=== PATIENT | female | born 1975 | race American Indian/Alaskan Native ===

== ENCOUNTER 2016-12-06 16:38 | Outpatient (CLI) | payer BC ==
[2016-12-06 17:12] LABS: Basophils % (Auto) 0.5 % (0.0-1.8); Eosinophils % (Auto) 0.5 % (0.0-4.3); Hematocrit 34.6 % (30.3-42.9); Hemoglobin 10.9 gm/dl (10.1-14.3); Mean Corpuscular HGB Conc 31 % (30-34); Mean Corpuscular Volume 76 fl (79-97); Platelet Count 179 K/mm3 (140-440); Red Blood Count 4.56 M/mm3 (3.65-5.03); Red Cell Distribution Width 16.7 % (13.2-15.2); White Blood Count 5.8 K/mm3 (4.5-11.0)
[2016-12-06 17:15] LABS: Mean Corpuscular Hemoglobin 24 pg (28-32)
[2016-12-06 17:31] LABS: Alanine Aminotransferase 12 units/L (7-56); Albumin 4.2 g/dL (3.9-5); Albumin/Globulin Ratio 1.7 %; Alkaline Phosphatase 51 units/L (35-129); Anion Gap 14 mmol/L; BUN/Creatinine Ratio 13.75; Bilirubin,Total 0.6 mg/dL (0.1-1.2); Blood Urea Nitrogen 11 mg/dL (7-17); Calcium 8.9 mg/dL (8.4-10.2); Carbon Dioxide 23 mmol/L (22-30); Chloride 103.5 mmol/L (98-107); Cholesterol 164 mg/dL (50-199); Glucose 70 mg/dL (65-100); HDL Cholesterol 54 mg/dL (40-59); LDL Cholesterol,Direct 94 mg/dL (50-130); Potassium 3.9 mmol/L (3.6-5.0); Sodium 137 mmol/L (137-145); Total Protein 6.7 g/dL (6.3-8.2); Triglycerides 82 mg/dL (2-149)
== END 2016-12-06 16:39 | disposition home or self-care (01) ==
LOC: LAB 16:38
PROVIDERS: ATTEND Family Medicine
DX: Z00.00 Encounter for general adult medical examination without abnormal findings (principal); Z83.3 Family history of diabetes mellitus
CPT/HCPCS: 36415; 80053; 80061; 83036; 84443; 85025

== ENCOUNTER → 2018-01-24 | Outpatient (CLI) | payer BC | LOC: SLR 11:00 | PROVIDERS: ATTEND Specialist | DX: G47.30 Sleep apnea, unspecified (principal); I10 Essential (primary) hypertension; J45.909 Unspecified asthma, uncomplicated | CPT/HCPCS: 95810 ==

== ENCOUNTER 2018-01-25 06:04 | Emergency (ER) | payer BC, OTHER ==
[2018-01-25 06:33] VITALS: BP 143/94
--- NOTE | 2018-01-25 07:51 | Emergency Department Report ---
ED Lower Extremity HPI - General Chief Complaint: Extremity Problem,Nontraumatic Stated Complaint: PAIN IN ANKLE Time Seen by Provider: 01/25/18 07:44 Source: patient Mode of arrival: Ambulatory Limitations: No Limitations - History of Present Illness Initial Comments: 42-year-old female past medical history NELLI presents with complaint of right heel pain and ankle pain since yesterday. 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 Patient states she has had pain and swelling in area. Limping slightly due to right heel pain which radiates to the foot. Denies injury to any other body part. States she took Motrin for pain earlier today. Denies any lacerations. MD Complaint: ankle injury, foot injury Onset/Timin -: days(s) - Related Data Home Medications Medication Instructions Recorded Confirmed Last Taken Albuterol *Only Ed* [Proventil 2.5 mg IH Q4H PRN 10/14/13 07/15/17 04/16/15 0.5% NEBS] amLODIPine [Norvasc] 5 mg PO DAILY 04/16/15 07/15/17 04/16/15 Multivitamin Tab [Multiple Vitamin 1 tab PO QDAY 03/02/17 07/15/17 Unknown TAB (Theragran)] Previous Rx's Medication Instructions Recorded Last Taken Type ALPRAZolam [Xanax TAB] 0.5 mg PO TID PRN #30 tab 07/17/17 Unknown Rx Ibuprofen [Motrin 800 MG tab] 800 mg PO Q8H PRN #20 tablet 07/17/17 Unknown Rx Montelukast [Singulair] 10 mg PO PRN PRN 30 Days tablet 07/17/17 Unknown Rx Ondansetron [Zofran ORAL LIQ] 4 mg PO Q4H PRN 30 Days liquid 07/17/17 Unknown Rx Pantoprazole [Protonix TAB] 40 mg PO QDAY #30 tablet 07/17/17 Unknown Rx Prednisone [predniSONE 10 mg 10 mg PO .TAPER #1 tab.ds.pk 07/17/17 Unknown Rx (6-Day Pack, 21 Tabs)] tiZANidine [Zanaflex] 4 mg PO BID PRN #60 tablet 07/17/17 Unknown Rx Ibuprofen [Motrin] 800 mg PO Q8HR PRN #20 tablet 01/25/18 Unknown Rx Allergies Allergy/AdvReac Type Severity Reaction Status Date / Time [place] [employer] Allergy Shortness Verified 03/02/17 15:17 of Breath grapefruit [Grapefruit] Allergy Hives Verified 03/02/17 15:17 Iodinated Contrast- Oral and Allergy Shortness Verified 03/02/17 15:17 IV Dye of Breath [Iodinated Contrast Media - IV Dye] morphine Allergy CAUSES Verified 03/02/17 15:17 EXCITABILITY ED Review of Systems ROS: Stated complaint: PAIN IN ANKLE Other details as noted in HPI ED Past Medical Hx - Past Medical History Previous Medical History?: Yes Hx Hypertension: Yes Hx Heart Attack/AMI: No Hx Congestive Heart Failure: No Hx Diabetes: No Hx Deep Vein Thrombosis: No Hx Pulmonary Embolism: Yes Hx Sickle Cell Disease: No Hx Arthritis: Yes Hx Seizures: No Hx Asthma: Yes Hx COPD: No Hx Tuberculosis: No Hx Dementia: No Hx HIV: No - Surgical History Past Surgical History?: Yes Hx Coronary Stent: No Hx Pacemaker: No Hx Internal Defibrillator: No Hx Breast Surgery: Yes (breast reduction) Additional Surgical History: tubal ligation. tonsillectomy. pylonodal cyst - Social History Smoking Status: Never Smoker Substance Use Type: None - Medications Home Medications: Home Medications Medication Instructions Recorded Confirmed Last Taken Type Albuterol *Only Ed* [Proventil 2.5 mg IH Q4H PRN 10/14/13 07/15/17 04/16/15 History 0.5% NEBS] amLODIPine [Norvasc] 5 mg PO DAILY 04/16/15 07/15/17 04/16/15 History Multivitamin Tab [Multiple Vitamin 1 tab PO QDAY 03/02/17 07/15/17 Unknown History TAB (Theragran)] ALPRAZolam [Xanax TAB] 0.5 mg PO TID PRN #30 tab 07/17/17 Unknown Rx Ibuprofen [Motrin 800 MG tab] 800 mg PO Q8H PRN #20 tablet 07/17/17 Unknown Rx Montelukast [Singulair] 10 mg PO PRN PRN 30 Days tablet 07/17/17 Unknown Rx Ondansetron [Zofran ORAL LIQ] 4 mg PO Q4H PRN 30 Days liquid 07/17/17 Unknown Rx Pantoprazole [Protonix TAB] 40 mg PO QDAY #30 tablet 07/17/17 Unknown Rx Prednisone [predniSONE 10 mg 10 mg PO .TAPER #1 tab.ds.pk 07/17/17 Unknown Rx (6-Day Pack, 21 Tabs)] tiZANidine [Zanaflex] 4 mg PO BID PRN #60 tablet 07/17/17 Unknown Rx Ibuprofen [Motrin] 800 mg PO Q8HR PRN #20 tablet 01/25/18 Unknown Rx ED Physical Exam - General Limitations: No Limitations General appearance: alert, in no apparent distress - Head Head exam: Present: atraumatic, normocephalic - Eye Eye exam: Present: normal appearance, PERRL, EOMI - ENT ENT exam: Present: mucous membranes moist - Neck Neck exam: Present: normal inspection - Respiratory Respiratory exam: Present: normal lung sounds bilaterally. Absent: respiratory distress - Cardiovascular Cardiovascular Exam: Present: regular rate, normal rhythm. Absent: systolic murmur, diastolic murmur, rubs, gallop - GI/Abdominal GI/Abdominal exam: Present: soft, normal bowel sounds - Extremities Exam Extremities exam: Present: normal inspection - Expanded Lower Extremity Exam Right Lower Leg exam: Present: normal inspection, full ROM Ankle exam: Present: tenderness Foot/Toe exam: Present: tenderness (back of heel), calcaneal tenderness Neuro vascular tendon exam: Present: no vascular compromise Gait: Positive: antalgic 1 - some pain here on palpation - Back Exam Back exam: Present: normal inspection, full ROM - Neurological Exam Neurological exam: Present: alert, oriented X3, CN II-XII intact - Psychiatric Psychiatric exam: Present: normal affect, normal mood - Skin Skin exam: Present: warm, dry, intact, normal color. Absent: rash ED Course Vital Signs 01/25/18 06:26 Temperature 97.9 F Pulse Rate 87 Respiratory 18 Rate Blood Pressure 143/94 O2 Sat by Pulse 100 Oximetry ED Lower Extremity MDM - Medical Decision Making A/P: Right heel pain, right heel contusion 1-x-ray right heel shows no fractures, some bony spurs 2-crutches, weightbearing as tolerated, Jayesh wrap, RICE therapy 3-follow-up with podiatry 4-Motrin when necessary Critical care attestation.: If time is entered above; I have spent that time in minutes in the direct care of this critically ill patient, excluding procedure time. ED Disposition Clinical Impression: Pain of right heel Foot contusion Qualifiers: Encounter type: initial encounter Laterality: right Qualified Code(s): S90.31XA - Contusion of right foot, initial encounter Disposition: TO HOME OR SELFCARE Is pt being admited?: No Does the pt Need Aspirin: No Condition: Stable Instructions: Crutch Instructions (ED), Plantar Fasciitis (ED), Foot Contusion (ED), RICE Therapy (ED) Prescriptions: Ibuprofen [Motrin] 800 mg PO Q8HR PRN #20 tablet PRN Reason: Pain Referrals: [facility] [Provider Group] - 3-5 Days Forms: Work/School Release Form(ED) Time of Disposition: 08:47
--- NOTE | 2018-01-25 07:53 | XRay Report ---
FINAL REPORT EXAM: XR CALCANEOUS 2+V RT HISTORY: RT HEEL PAIN COMPARISONS: Right ankle radiographs of the same date FINDINGS: Lateral and Lewis views of the right calcaneus No subtalar coalition identified. No calcaneal fracture. Small calcaneal heel spur and Achilles insertional enthesophytes. IMPRESSION: No acute osseous calcaneal finding. Small calcaneal heel spur and Achilles calcific tendinosis may contribute to patient's symptoms.
[2018-01-25] MEDS ORDERED: TYLENOL #3 PO ONE (09:01)
--- NOTE | 2018-01-25 12:48 | XRay Report ---
FINAL REPORT EXAM: XR ANKLE 2V RT HISTORY: RT ANKLE PAIN TECHNIQUE: Two views right ankle. PRIORS: None currently available. FINDINGS: Bone fragment at the inferior medial malleolus may represent a small ossicle or chip fracture. Ossicle favored. No other fractures identified. There is no acute dislocation. Joints in anatomical position. No significant arthrosis. There is no cortical destruction to suggest osteomyelitis. There are no suspicious osseous lesions. There are no radiopaque foreign objects. IMPRESSION: Small sickle versus chip fracture at the inferior medial malleolus. Ossicle favor. Please correlate for point tenderness.
== END 2018-01-25 09:22 | disposition home or self-care (01) ==
LOC: ED 06:04
DX: S90.31XA Contusion of right foot, initial encounter (principal); M25.571 Pain in right ankle and joints of right foot; J45.909 Unspecified asthma, uncomplicated; I10 Essential (primary) hypertension; M19.90 Unspecified osteoarthritis, unspecified site; Z86.711 Personal history of pulmonary embolism; Z88.5 Allergy status to narcotic agent; Z91.041 Radiographic dye allergy status; Z91.02 Food additives allergy status; X58.XXXA Exposure to other specified factors, initial encounter; Y93.89 Activity, other specified; Y99.8 Other external cause status; Y92.239 Unspecified place in hospital as the place of occurrence of the external cause

== ENCOUNTER 2018-01-28 10:41 | Outpatient (CLI) | payer BC ==
[2018-01-28 11:19] LABS: Basophils % (Auto) 0.4 % (0.0-1.8); Eosinophils % (Auto) 0.9 % (0.0-4.3); Hematocrit 39.7 % (30.3-42.9); Hemoglobin 13.4 gm/dl (10.1-14.3); Lymphocytes # (Auto) 2.1 K/mm3 (1.2-5.4); Lymphocytes % (Auto) 49.8 % (13.4-35.0); Mean Corpuscular HGB Conc 34 % (30-34); Mean Corpuscular Hemoglobin 28 pg (28-32); Mean Corpuscular Volume 82 fl (79-97); Monocytes # (Auto) 0.4 K/mm3 (0.0-0.8); Monocytes % (Auto) 9.2 % (0.0-7.3); Platelet Count 169 K/mm3 (140-440); Red Blood Count 4.82 M/mm3 (3.65-5.03); Red Cell Distribution Width 14.4 % (13.2-15.2)
[2018-01-28 11:33] LABS: Alanine Aminotransferase 11 units/L (7-56); BUN/Creatinine Ratio 17; Blood Urea Nitrogen 15 mg/dL (7-17); Calcium 8.8 mg/dL (8.4-10.2); Chol/HDL Ratio 2.66 %; HDL Cholesterol 54 mg/dL (40-59); Hemolysis Index 1; LDL Cholesterol,Direct 88 mg/dL (50-130)
== END 2018-01-28 10:42 | disposition home or self-care (01) ==
LOC: LAB 10:41
PROVIDERS: ATTEND Family Medicine
DX: Z00.01 Encounter for general adult medical examination with abnormal findings (principal); I10 Essential (primary) hypertension; J45.909 Unspecified asthma, uncomplicated; F41.9 Anxiety disorder, unspecified; R79.89 Other specified abnormal findings of blood chemistry
CPT/HCPCS: 36415; 80053; 80061; 83036; 84443; 85025

== ENCOUNTER 2018-02-28 12:24 | Outpatient (CLI) | payer BC ==
--- NOTE | 2018-02-28 13:14 | Mammography Report ---
Screening mammogram: Breast reduction surgery bilaterally. Routine view demonstrates an intermediate density fibroglandular pattern. There is mild diffuse architectural distortion consistent with prior surgical history. In the inferomedial right breast there is a focal area of asymmetric tissue density. The findings bilaterally are otherwise unremarkable. No recent prior exams. CAD used. Impression: Right breast asymmetry. Recommendation: Spot compression imaging of the right breast and ultrasound as needed. BI-RADS CATEGORY: 0 = Needs additional imaging evaluation ACR BI-RADS MAMMOGRAPHIC CODES: 0 = Needs additional imaging evaluation; 1 = Negative; 2 = Benign; 3 = Probably benign; 4 = Suspicious; 5 = Malignant; 6 = Known biopsy-proven malignancy COMMENT: 1. Dense breast tissue, i.e., adenosis, fibrocystic changes, etc., may obscure an underlying neoplasm. 2. Approximately 10% of cancers are not detected with mammography. 3. A negative mammography report should not delay biopsy if a clinically suspicious mass is present.
== END 2018-02-28 12:25 | disposition home or self-care (01) ==
LOC: SPVWC 12:24
PROVIDERS: ATTEND Nurse Practitioner Family
DX: Z12.31 Encounter for screening mammogram for malignant neoplasm of breast (principal)
CPT/HCPCS: 77067

== ENCOUNTER 2018-03-08 10:00 | Outpatient (CLI) | payer BC ==
--- NOTE | 2018-03-09 12:25 | Mammography Report ---
RIGHT DIGITAL DIAGNOSTIC MAMMOGRAM with CAD and RIGHT BREAST ULTRASOUND: 03/08/18 CLINICAL: Recall for asymmetry. COMPARISON:02/28/18creening FINDINGS: Spot compression views of the lower inner right breast demonstrated persistent irregular asymmetry. Ultrasound of the the lower inner right breast demonstrated no mass or shadowing to correlate with the asymmetry. A benign cyst at 6 o'clock 2 cm from the nipple. IMPRESSION: A probably benign asymmetry with a negative ultrasound. The asymmetry probably represents a benign scar from a reduction mammoplasty. BI-RADS CATEGORY: 3-Probably Benign RECOMMENDATION: 6 month followup right mammogram and ultrasound if needed. ACR BI-RADS MAMMOGRAPHIC CODES: 0 = Needs additional imaging evaluation; 1 = Negative; 2 = Benign; 3 = Probably benign; 4 = Suspicious; 5 = Malignant; 6 = Known biopsy-proven malignancy COMMENT: 1. Dense breast tissue, i.e., adenosis, fibrocystic changes, etc., may obscure an underlying neoplasm. 2. Approximately 10% of cancers are not detected with mammography. 3. A negative mammography report should not delay biopsy if a clinically suspicious mass is present. COMMENT: Patient follow-up letters are generated via our [employer] application.
== END 2018-03-08 10:01 | disposition home or self-care (01) ==
LOC: SPVWC 10:00
PROVIDERS: ATTEND Nurse Practitioner Family
DX: R92.8 Other abnormal and inconclusive findings on diagnostic imaging of breast (principal); I10 Essential (primary) hypertension; J45.909 Unspecified asthma, uncomplicated; F41.9 Anxiety disorder, unspecified; Z88.5 Allergy status to narcotic agent; Z91.018 Allergy to other foods; Z91.041 Radiographic dye allergy status

== ENCOUNTER 2018-03-26 11:00 | Outpatient (CLI) | payer BC | END 2018-03-26 11:01 | disposition home or self-care (01) | LOC: SLR 11:00 | PROVIDERS: ATTEND Otolaryngology | DX: G47.33 Obstructive sleep apnea (adult) (pediatric) (principal); I10 Essential (primary) hypertension; J44.1 Chronic obstructive pulmonary disease with (acute) exacerbation; F41.9 Anxiety disorder, unspecified; M19.90 Unspecified osteoarthritis, unspecified site; Z88.8 Allergy status to other drugs, medicaments and biological substances | CPT/HCPCS: 95811 ==

== ENCOUNTER 2018-09-27 14:22 | Outpatient (CLI) | payer BC ==
[2018-09-27 14:57] LABS: BUN/Creatinine Ratio 10; Blood Urea Nitrogen 11 mg/dL (7-17); Hemolysis Index 17
== END 2018-09-27 14:23 | disposition home or self-care (01) ==
LOC: LAB 14:22
PROVIDERS: ATTEND Physician Assistant Medical
DX: I10 Essential (primary) hypertension (principal); J44.9 Chronic obstructive pulmonary disease, unspecified; M19.90 Unspecified osteoarthritis, unspecified site; Z90.710 Acquired absence of both cervix and uterus
CPT/HCPCS: 36415; 80048

== ENCOUNTER 2018-10-15 10:36 | Outpatient (CLI) | payer BC ==
--- NOTE | 2018-10-15 12:09 | Mammography Report ---
RIGHT DIGITAL DIAGNOSTIC MAMMOGRAM with CAD: 10/15/18 10:36:00 CLINICAL: Follow-up asymmetry.History of a remote breast reduction. COMPARISON:03/08/18 and 02/28/18 FINDINGS: Routine views plus a spot compression MLO view were performed. The previous to described asymmetry is less prominent and appears to represent benign scar. IMPRESSION: No mammographic evidence of malignancy. BI-RADS CATEGORY: 2 -- Benign RECOMMENDATION: Return to routine mammographic screening. ACR BI-RADS MAMMOGRAPHIC CODES: 0 = Needs additional imaging evaluation; 1 = Negative; 2 = Benign; 3 = Probably benign; 4 = Suspicious; 5 = Malignant; 6 = Known biopsy-proven malignancy COMMENT: 1. Dense breast tissue, i.e., adenosis, fibrocystic changes, etc., may obscure an underlying neoplasm. 2. Approximately 10% of cancers are not detected with mammography. 3. A negative mammography report should not delay biopsy if a clinically suspicious mass is present. COMMENT: Patient follow-up letters are generated by our [email or web address] application.
== END 2018-10-15 10:37 | disposition home or self-care (01) ==
LOC: MAMMO 10:36
PROVIDERS: ATTEND Family Medicine
DX: R92.8 Other abnormal and inconclusive findings on diagnostic imaging of breast (principal); J44.9 Chronic obstructive pulmonary disease, unspecified; I10 Essential (primary) hypertension; M19.90 Unspecified osteoarthritis, unspecified site; Z90.710 Acquired absence of both cervix and uterus

== ENCOUNTER 2018-10-17 08:57 | Day surgery (SDC) | payer BC ==
[~2018-10-17 08:57] MED LIST: MARCAINE 0.5% INFILTRATI ONE; MARCAINE-EPI 0.5%-1:200,000 INFILTRATI ONE; XYLOCAINE 1% 20 mL ONE
[2018-10-17] MEDS ORDERED: MARCAINE 0.5% INFILTRATI ONE (09:55)
[2018-10-17] MEDS ORDERED: XYLOCAINE 1% 20 mL INFILTRATI ONE (09:55)
[2018-10-17] MEDS ORDERED: XYLOCAINE 1% 20 mL ONE (10:00)
[2018-10-17 10:13] VITALS: BP 148/105
--- NOTE | 2018-10-17 10:33 | Procedure Note ---
Date of procedure: 10/17/18 Pre-op diagnosis: chronic low back pain Post-op diagnosis: same Procedure: Lumbar facet blocks left L3-5 Procedure The patient was brought to the OR and placed prone onto the OR table, the lumbar spine was prepped and draped in the usual sterile manner. A timeout procedure was done to identify the patient and the correct levels of nerve block being performed the patient was awake during the procedure. Using C-arm fluoroscopy the L5 for an levels were visualized in both the PA and 45 oblique views 20- gauge spinal needles were inserted again under direct fluoroscopic control after placing the spinal needles and the correct position and Marcaine injection was performed using 1% without epinephrine. The patient tolerated the procedure and no complications Anesthesia: local Surgeon: RIAN AGUILERA Estimated blood loss: minimal Condition: stable Disposition: observation
--- NOTE | 2018-10-18 07:52 | XRay Report ---
AP AND LATERAL LUMBOSACRAL SPINE: History: Chronic back pain. Fluoroscopy was provided by radiology during lumbar facet injection from L3-L5 on the left side. 2 fluoroscopic images are presented which demonstrate good needle placement. Minimal lumbar spondylosis is noted. IMPRESSION: Needle placement for facet injection as described. Minimal lumbar spondylosis.
== END 2018-10-17 10:35 | disposition home or self-care (01) ==
LOC: OR 08:57
PROVIDERS: ATTEND Orthopaedic Surgery
DX: M47.816 Spondylosis without myelopathy or radiculopathy, lumbar region (principal); J45.909 Unspecified asthma, uncomplicated; I10 Essential (primary) hypertension; K21.9 Gastro-esophageal reflux disease without esophagitis; I26.99 Other pulmonary embolism without acute cor pulmonale; G47.30 Sleep apnea, unspecified; M19.90 Unspecified osteoarthritis, unspecified site; F41.9 Anxiety disorder, unspecified; Z98.890 Other specified postprocedural states; Z83.3 Family history of diabetes mellitus; Z80.1 Family history of malignant neoplasm of trachea, bronchus and lung; Z80.8 Family history of malignant neoplasm of other organs or systems; Z88.5 Allergy status to narcotic agent; Z91.041 Radiographic dye allergy status; Z79.899 Other long term (current) drug therapy; Z98.51 Tubal ligation status; Z90.710 Acquired absence of both cervix and uterus; Z79.01 Long term (current) use of anticoagulants; Z88.8 Allergy status to other drugs, medicaments and biological substances; Z82.49 Family history of ischemic heart disease and other diseases of the circulatory system
CPT/HCPCS: 72100

== ENCOUNTER 2018-11-28 08:06 | Day surgery (SDC) | payer BC ==
[2018-11-28] MEDS ORDERED: LACTATED RINGERS 1,000 ML IV SCH (09:18)
[2018-11-28] MEDS ORDERED: MARCAINE 0.5% INFILTRATI ONE ×3 (09:23→12:24)
[2018-11-28] MEDS ORDERED: DEPO-Medrol ONE ×2 (09:23→12:26)
[2018-11-28] MEDS ORDERED: VERSED IV NR (10:00)
[2018-11-28] MEDS ORDERED: SUBLIMAZE IV PRN (10:32)
--- NOTE | 2018-11-28 10:35 | Anesthesia Consultation ---
Anesthesia Consult and Med Hx Date of service: 11/28/18 - Airway Anesthetic Teeth Evaluation: Good ROM Head & Neck: Adequate Mental/Hyoid Distance: Adequate Mallampati Class: Class II Intubation Access Assessment: Probably Good - Pulmonary Exam CTA: Yes - Cardiac Exam Cardiac Exam: RRR - Pre-Operative Health Status ASA Pre-Surgery Classification: ASA3 Proposed Anesthetic Plan: MAC - Pulmonary Hx Smoking: No Hx Asthma: Yes (last albuterol 6 months ago; hx intubations x4.) SOB: No Hx Sleep Apnea: Yes (compliant with CPAP) - Cardiovascular System Hx Hypertension: Yes (took amlodipine today) Hx Heart Attack/AMI: No Hx Percutaneous Transluminal Coronary Angioplasty (PTCA): No - Central Nervous System Hx Seizures: No CVA: No Hx Back Pain: Yes Hx Psychiatric Problems: Yes (anxiety; xanax prn) - Gastrointestinal Hx Gastroesophageal Reflux Disease: No - Endocrine Hx Renal Disease: No Hx Liver Disease: No Hx Insulin Dependent Diabetes: No Hx Non-Insulin Dependent Diabetes: No Hx Thyroid Disease: No - Other Systems Hx Obesity: Yes - Additional Comments Anesthesia Medical History Comments: No hx anesthetic complications.
--- NOTE | 2018-11-28 10:35 | Anesthesia Day of Surgery ---
Anesthesia Day of Surgery - Day of Surgery Patient Examined: Yes Patient H&P Reviewed: Yes Patient is NPO: Yes
[2018-11-28] MEDS ORDERED: SUBLIMAZE IV ONE (11:14)
[2018-11-28] MEDS ORDERED: SUBLIMAZE IV NR (11:30)
[2018-11-28] MEDS ORDERED: DIPRIVAN 10 MG/ML IV ONE (11:39)
[2018-11-28] MEDS ORDERED: SUBLIMAZE ONE (11:41)
[2018-11-28] MEDS ORDERED: VERSED ONE (12:01)
[2018-11-28] MEDS ORDERED: DILAUDID ONE (12:44)
[2018-11-28] MEDS ORDERED: BENADRYL ONE (13:17)
[2018-11-28 13:30] VITALS: BP 121/71
--- NOTE | 2018-11-28 13:58 | Procedure Note ---
Date of procedure: 11/28/18 Pre-op diagnosis: chronic low back pain Post-op diagnosis: same Procedure: Lumbar radiofrequency ablation at the left L2-5 Procedure The patient was brought to the OR and placed on the Fran table prone with a pillow place underneath the abdomen to straighten out the lumbar spine next the lumbar spine area was prepped and draped in the usual sterile manner. A timeout procedure done to identify the patient and correct operative site Using C-arm fluoroscopy 4 lumbar pain management introducers placed in the area near the superior articular process junctions to the transverse processes AP and lateral views were used to confirm correct placement of the probes. Next motor nerves were checked to ensure that we were not next to a motor branch following this local anesthetic was used to deaden the area followed by radiofrequency ablation of the medial branch of the dorsal rami. This step repeated for each level until we had perform all four spots. At the completion of the third and final ablation the patient was awakened and was taken to postanesthesia recovery in a stable condition, there were no complications Anesthesia: other (IV sedation) Surgeon: RIAN AGUILERA Estimated blood loss: minimal Pathology: none Condition: stable Disposition: PACU
[2018-11-28] MEDS ORDERED: BENADRYL IV ONE (14:00)
--- NOTE | 2018-11-28 15:27 | Post Anesthesia Evaluation ---
- Post Anesthesia Evaluation Patient Participated: Yes Airway Patent: Yes Stable Respiratory Function: Yes Nausea/Vomiting: No Temp > 96.8F: Yes Pain Manageable: Yes Adequeate Hydration: Yes Anesthesia Complications: No
--- NOTE | 2018-11-29 07:31 | XRay Report ---
LUMBOSACRAL SPINE, 2 VIEWS History: Chronic lower back pain. Findings: Fluoroscopy was provided by radiology during needle placement for radiofrequency ablation by orthopedics. PA and lateral fluoroscopic images of the lumbar spine are presented with needle placement on the left side spanning from L2-L5 levels. The bony structures are intact and in appropriate alignment. Mild lumbar spondylosis is noted. Please correlate with the procedural report as needed. Impression: Mild lumbar spondylosis. Needle placement for radiofrequency ablation.
== END 2018-11-28 08:07 | disposition home or self-care (01) ==
LOC: OR 08:06
PROVIDERS: ATTEND Orthopaedic Surgery
DX: M47.816 Spondylosis without myelopathy or radiculopathy, lumbar region (principal); I10 Essential (primary) hypertension; J44.9 Chronic obstructive pulmonary disease, unspecified; G47.30 Sleep apnea, unspecified; M51.26 Other intervertebral disc displacement, lumbar region; K21.9 Gastro-esophageal reflux disease without esophagitis; M19.90 Unspecified osteoarthritis, unspecified site; F41.9 Anxiety disorder, unspecified; E66.9 Obesity, unspecified; Z68.34 Body mass index [BMI] 34.0-34.9, adult; Z79.899 Other long term (current) drug therapy; Z88.5 Allergy status to narcotic agent; Z91.040 Latex allergy status; Z79.01 Long term (current) use of anticoagulants; Z86.718 Personal history of other venous thrombosis and embolism; Z98.51 Tubal ligation status; Z90.710 Acquired absence of both cervix and uterus; Z98.890 Other specified postprocedural states; Z86.711 Personal history of pulmonary embolism; Z80.8 Family history of malignant neoplasm of other organs or systems; Z80.1 Family history of malignant neoplasm of trachea, bronchus and lung; Z80.0 Family history of malignant neoplasm of digestive organs; Z83.3 Family history of diabetes mellitus; Z82.5 Family history of asthma and other chronic lower respiratory diseases; Z83.49 Family history of other endocrine, nutritional and metabolic diseases; Z82.49 Family history of ischemic heart disease and other diseases of the circulatory system; Z86.2 Personal history of diseases of the blood and blood-forming organs and certain disorders involving the immune mechanism
CPT/HCPCS: 64635; 64636; 72100; 82803; A4649; J1030; J1170; J1200; J2250; J2704; J3010; J7120

== ENCOUNTER 2019-01-03 07:59 | Outpatient (CLI) | payer BC ==
--- NOTE | 2019-01-03 19:10 | Treadmill Report ---
TREADMILL STRESS TEST REASON FOR STUDY: For palpitation. FINDINGS: The patient exercised on Dae protocol for 10 minutes. Baseline EKG, sinus rhythm, heart rate 88, baseline blood pressure 119/79. The patient achieved 160 beats per minute, which is 90% maximum heart rate. Peak blood pressure was 170/103. The patient had no EKG changes or arrhythmia suggestive of ischemia. SUMMARY: 1. Negative treadmill EKG. 2. Good exercise capacity 10 minutes Dae protocol. 3. There are no EKG changes or arrhythmia suggestive of ischemia. 4. No exaggerated BP response to exercise. JOB# [id number] RAISSA/ZEINAB
== END 2019-01-03 08:00 | disposition home or self-care (01) ==
LOC: ECHO 07:59
PROVIDERS: ATTEND Internal Medicine
DX: I07.1 Rheumatic tricuspid insufficiency (principal); I10 Essential (primary) hypertension; J44.9 Chronic obstructive pulmonary disease, unspecified; E66.9 Obesity, unspecified; K21.9 Gastro-esophageal reflux disease without esophagitis; Z90.89 Acquired absence of other organs
CPT/HCPCS: 36415; 84436; 84443; 93017; 93306

== ENCOUNTER 2019-05-01 09:43 | Day surgery (SDC) | payer BC ==
[2019-05-01] MEDS ORDERED: MARCAINE 0.5% INFILTRATI ONE (15:09)
[2019-05-01] MEDS ORDERED: XYLOCAINE 1% 20 mL INFILTRATI ONE ×2 (15:09)
[2019-05-01] MEDS ORDERED: XYLOCAINE 1% 20 mL ONE (15:47)
[2019-05-01 16:13] VITALS: BP 167/106
--- NOTE | 2019-05-01 16:45 | XRay Report ---
INTRAOPERATIVE FLUOROSCOPY: LUMBAR SPINE INDICATION / CLINICAL INFORMATION: LOW BACK PAIN. TECHNIQUE: Intraoperative spot images were obtained during the procedure. FINDINGS: Fluoroscopic images were obtained during injections around multiple right lumbar facet joints. Fluoroscopy Time: 0.6 minutes. Fluoroscopy Images: 2. Signer Name: Pasquale Muller MD Signed: 05/01/2019 4:41 PM Workstation Name: [id number]
--- NOTE | 2019-05-01 17:04 | Procedure Note ---
Date of procedure: 05/01/19 Pre-op diagnosis: chronic low back pain Post-op diagnosis: same Procedure: Lumbar facet blocks at right L2 through L5 Procedure The patient was brought to the OR and placed prone onto the OR table, the lumbar spine was prepped and draped in the usual sterile manner. A timeout procedure was done to identify the patient and the correct levels of nerve block being performed the patient was awake during the procedure. Using C-arm fluoroscopy the L5 through L2 levels were visualized in both the PA and 45 oblique views 20-gauge spinal needles were inserted again under direct fluoroscopic control after placing the spinal needles and the correct position and Marcaine injection was performed using 1% without epinephrine. The patient tolerated the procedure and no complications Anesthesia: local Surgeon: RIAN AGUILERA Estimated blood loss: minimal Pathology: none Condition: stable Disposition: observation
== END 2019-05-01 16:04 | disposition home or self-care (01) ==
LOC: OR 09:43
PROVIDERS: ATTEND Orthopaedic Surgery
DX: M54.5 Low back pain (principal); G89.29 Other chronic pain; I10 Essential (primary) hypertension; J44.9 Chronic obstructive pulmonary disease, unspecified; M19.90 Unspecified osteoarthritis, unspecified site; F41.9 Anxiety disorder, unspecified; K21.9 Gastro-esophageal reflux disease without esophagitis; E66.9 Obesity, unspecified; G47.30 Sleep apnea, unspecified; Z79.899 Other long term (current) drug therapy; Z91.041 Radiographic dye allergy status; Z88.5 Allergy status to narcotic agent; Z86.711 Personal history of pulmonary embolism; Z80.8 Family history of malignant neoplasm of other organs or systems; Z83.3 Family history of diabetes mellitus; Z80.0 Family history of malignant neoplasm of digestive organs; Z80.1 Family history of malignant neoplasm of trachea, bronchus and lung; Z82.5 Family history of asthma and other chronic lower respiratory diseases; Z83.49 Family history of other endocrine, nutritional and metabolic diseases; Z98.51 Tubal ligation status; Z90.710 Acquired absence of both cervix and uterus; Z98.890 Other specified postprocedural states; Z68.34 Body mass index [BMI] 34.0-34.9, adult; Z82.49 Family history of ischemic heart disease and other diseases of the circulatory system
CPT/HCPCS: 72100

== ENCOUNTER 2019-06-12 06:17 | Day surgery (SDC) | payer BC ==
[2019-06-12] MEDS ORDERED: BACTERIOSTATIC SODIUM CHLORIDE 0.9% 30 ML VIAL INFILTRATI ONE (07:23)
[2019-06-12] MEDS ORDERED: LACTATED RINGERS 1,000 ML ONE (08:04)
--- NOTE | 2019-06-12 08:14 | Anesthesia Consultation ---
Anesthesia Consult and Med Hx Date of service: 06/12/19 - Airway Anesthetic Teeth Evaluation: Good ROM Head & Neck: Adequate Mental/Hyoid Distance: Adequate Mallampati Class: Class III Intubation Access Assessment: Possibly Difficult - Pre-Operative Health Status ASA Pre-Surgery Classification: ASA3 Proposed Anesthetic Plan: MAC - Pulmonary Hx Smoking: No Hx Asthma: Yes ( hx intubations x4, INHALERS PRN) SOB: No COPD: Yes Hx Pneumonia: Yes (2001) Hx Sleep Apnea: Yes (DX SLEEP APNEA WITH CPAP USE.) - Cardiovascular System Hx Hypertension: Yes (X 2 YRS) Hx Heart Attack/AMI: No Hx Heart Murmur: No - Central Nervous System Hx Seizures: No Hx Back Pain: Yes (CHRONIC) Hx Psychiatric Problems: Yes (anxiety; xanax prn) - Gastrointestinal Hx Gastroesophageal Reflux Disease: No - Endocrine Hx Liver Disease: No Hx Insulin Dependent Diabetes: No Hx Non-Insulin Dependent Diabetes: No Hx Thyroid Disease: No - Other Systems Hx Cancer: No Hx Obesity: Yes (BMI 34.5)
--- NOTE | 2019-06-12 08:14 | Anesthesia Day of Surgery ---
Anesthesia Day of Surgery - Day of Surgery Patient Examined: Yes Patient H&P Reviewed: Yes Patient is NPO: Yes
[2019-06-12] MEDS ORDERED: MIDAZOLAM 2 MG/2 ML INJ IV NR (09:00)
[2019-06-12] MEDS ORDERED: LACTATED RINGERS 1,000 ML IV SCH (09:00)
[2019-06-12] MEDS ORDERED: FAMOTIDINE 20 MG/2 ML INJ IV NR (09:00)
[2019-06-12] MEDS ORDERED: MIDAZOLAM 2 MG/2 ML INJ ONE (10:18)
[2019-06-12] MEDS ORDERED: LIDOCAINE MPF (2%) 20 MG/1 ML VIAL 5 ML ONE (10:19)
[2019-06-12] MEDS ORDERED: PROPOFOL 200 MG/20 ML VIAL IV ONE ×3 (10:19→11:37)
[2019-06-12] MEDS ORDERED: HYDROmorphone 1 MG/1 ML INJ ONE ×2 (10:19→12:32)
[2019-06-12] MEDS ORDERED: BUPIVACAINE/PF (0.5%) 5 MG/1 ML 30 ML VIAL INFILTRATI ONE ×2 (10:57→11:05)
[2019-06-12] MEDS ORDERED: methylPREDNISolone ACETATE 40 MG/1 ML INJ ONE (10:57)
[2019-06-12] MEDS ORDERED: LIDOCAINE (1%) 10 MG/1 ML VIAL 20 ML MDV ONE ×2 (10:57→12:00)
[2019-06-12] MEDS ORDERED: WATER FOR IRRIG STERILE 1,000 ML BOTTLE IR ONE (11:05)
[2019-06-12] MEDS ORDERED: methylPREDNISolone ACETATE 40 MG/1 ML INJ INTRA-ARTI ONE (11:05)
[2019-06-12] MEDS ORDERED: LIDOCAINE (1%) 10 MG/1 ML VIAL 20 ML MDV INFILTRATI ONE ×2 (11:05)
[2019-06-12] MEDS ORDERED: ONDANSETRON 4 MG/2 ML INJ ONE ×2 (12:12→12:33)
--- NOTE | 2019-06-12 12:14 | Procedure Note ---
Date of procedure: 06/12/19 Pre-op diagnosis: Chronic low back pain Post-op diagnosis: same Procedure: Lumbar radiofrequency ablation at the right L2-5 Procedure The patient was brought to the OR and placed on the Fran table prone with a pillow place underneath the abdomen to straighten out the lumbar spine next the lumbar spine area was prepped and draped in the usual sterile manner. A timeout procedure done to identify the patient and correct operative site Using C-arm fluoroscopy 4 lumbar pain management introducers placed in the area near the superior articular process junctions to the transverse processes AP and lateral views were used to confirm correct placement of the probes. Next motor nerves were checked to ensure that we were not next to a motor branch following this local anesthetic was used to deaden the area followed by radiofrequency ablation of the medial branch of the dorsal rami. This step repeated for each level until we had perform all four spots. At the completion of the third and final ablation the patient was awakened and was taken to postanesthesia recovery in a stable condition, there were no complications Anesthesia: MAC Surgeon: RIAN AGUILERA Estimated blood loss: minimal Pathology: none Condition: stable Disposition: PACU
[2019-06-12] MEDS: HYDROmorphone 1 MG/1 ML INJ IV PRN ×2 (12:34→12:45)
[2019-06-12] MEDS ORDERED: ONDANSETRON 4 MG/2 ML INJ IV PRN (12:35)
[2019-06-12] MEDS ORDERED: HYDROcodone/ACETAMINOPHEN 5-325 MG TAB PO PRN (13:00)
[2019-06-12] MEDS ORDERED: diphenhydrAMINE 50 MG/ML VIAL IV ONE (13:00)
[2019-06-12] MEDS ORDERED: diphenhydrAMINE 50 MG/ML VIAL ONE (13:01)
[2019-06-12 13:18] VITALS: BP 114/75
--- NOTE | 2019-06-12 15:29 | XRay Report ---
Lumbosacral spine, 2 views INDICATION: CHRONIC LOW BACK PAIN, L2-5 RF ABLATION. COMPARISON: None. IMPRESSION: 1 minute and 43 seconds of fluoroscopy time was provided by radiology during radiofreque ncy ablation in the lumbar region by Dr. Holman. PA and lateral fluoroscopic images of the lumbar reg ion are presented demonstrating needle placement on the right side from L2-L5 for radiofrequency abla tion. There is normal alignment of the lumbar vertebra. No compression deformity or obvious bone les ion. The disc spaces appear normal height. There is mild diffuse facet arthropathy. Please correlate with the procedural report as needed. Signer Name: Edgar Mariscal Jr, MD Signed: 06/12/2019 3:25 PM Workstation Name: [id number]
== END 2019-06-12 13:50 | disposition home or self-care (01) ==
LOC: OR 06:17
PROVIDERS: ATTEND Orthopaedic Surgery
DX: M54.5 Low back pain (principal); G89.29 Other chronic pain; G47.30 Sleep apnea, unspecified; I10 Essential (primary) hypertension; E66.9 Obesity, unspecified; J44.1 Chronic obstructive pulmonary disease with (acute) exacerbation; M19.90 Unspecified osteoarthritis, unspecified site; F41.9 Anxiety disorder, unspecified; K21.9 Gastro-esophageal reflux disease without esophagitis; Z68.34 Body mass index [BMI] 34.0-34.9, adult; Z88.5 Allergy status to narcotic agent; Z88.8 Allergy status to other drugs, medicaments and biological substances; Z79.899 Other long term (current) drug therapy; Z90.710 Acquired absence of both cervix and uterus; Z98.51 Tubal ligation status; Z98.890 Other specified postprocedural states
CPT/HCPCS: 36415; 64635; 64636; 72100; 84132; A4649; J1030; J1170; J1200; J2250; J2405; J2704; J7120

== ENCOUNTER 2019-09-01 12:27 | Observation (INO) | payer BC ==
[2019-09-01] MEDS ORDERED: MAGNESIUM SULFATE 2 GM/50 ML BAG IV ONE (12:31)
[2019-09-01] MEDS ORDERED: methylPREDNISolone Sod Succinate 125 MG/2 ML INJ IV ONE (12:31)
[2019-09-01] MEDS ORDERED: IPRATROPIUM 0.02% NEBU 2.5 ML IH ONE ×4 (12:31→15:52)
[2019-09-01] MEDS ORDERED: ALBUTEROL 2.5 MG/3 ML NEBU IH ONE ×6 (12:31→19:53)
--- NOTE | 2019-09-01 12:44 | Emergency Department Report ---
<ZAINABNARINDER - Last Filed: 09/01/19 14:03> ED Asthma HPI - General Stated Complaint: MICHAEL Time Seen by Provider: 09/01/19 12:30 Source: patient, old records reviewed Mode of arrival: Wheelchair Limitations: Other (severe respiratory distress) - History of Present Illness Initial Comments: Mrs. Wu is a 44 yo female with hx of severe asthma, 4 intubations who presents with asthma attack. 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 Normally has a severe attack every 2 years. Has been in her normal health. Unable to give much hx due to severe shortness of breath. MD Complaint: "asthma attack", shortness of breath, wheezing -: Sudden, This afternoon Asthma History: history of prior ED visit, previously intubated Severity: severe Context: none known Associated Symptoms: none Treatments Prior to Arrival: other (none) - Related Data Home Medications Medication Instructions Recorded Confirmed Last Taken amLODIPine 10 mg PO DAILY 04/16/15 06/12/19 06/11/19 05:00 Multivitamin Tab [Multiple Vitamin 1 tab PO QDAY 03/02/17 06/12/19 12/09/18 06:00 TAB (Theragran)] ALBUTEROL Inhaler(NF) [VENTOLIN 1 puff IH PRN PRN 10/09/18 06/12/19 05/12/19 06:00 Inhaler(NF)] Montelukast [Singulair] 10 mg PO PRN PRN 10/09/18 06/12/19 12/09/18 05:00 hydroCHLOROthiazide [Hctz] 12.5 mg PO QDAY 10/09/18 06/12/19 06/10/19 05:00 Previous Rx's Medication Instructions Recorded Last Taken Type ALPRAZolam [Xanax TAB] 0.5 mg PO TID PRN #30 tab 07/17/17 Unknown Rx Ibuprofen [Motrin 800 MG tab] 800 mg PO Q8H PRN #20 tablet 07/17/17 06/10/19 05:00 Rx HYDROcodone/APAP 7.5-325 [[place] 1 each PO Q6HR PRN #20 tablet 11/28/18 Unknown Rx 7.5-325 mg TAB] traMADoL [Ultram 50 MG tab] 50 mg PO Q4HR PRN #30 tablet 11/28/18 Unknown Rx HYDROcodone/APAP 5-325 [[place] 1 each PO Q4HR PRN #20 tablet 06/12/19 Unknown Rx 5-325 mg TAB] Doxycycline Hyclate [Doxycycline 100 mg PO Q12HR 7 Days #14 tab 09/01/19 Unknown Rx Hyclate TAB] Prednisone [predniSONE 10 mg 10 mg PO .TAPER #1 tab.ds.pk 09/01/19 Unknown Rx (6-Day Pack, 21 Tabs)] Allergies Allergy/AdvReac Type Severity Reaction Status Date / Time [place] And Derivatives Allergy Hives Verified 10/09/18 11:04 Iodinated Contrast Media Allergy Shortness Verified 03/02/17 15:17 [Iodinated Contrast Media - of Breath IV Dye] morphine Allergy CAUSES Verified 03/02/17 15:17 EXCITABILITY ED Review of Systems Comment: Unobtainable due to pts medical conditions (severe work of breathing, severe respiratory distress unable to speak) ED Past Medical Hx - Past Medical History Previous Medical History?: Yes Hx Hypertension: Yes (X 2 YRS) Hx Heart Attack/AMI: No Hx Diabetes: No Hx Pulmonary Embolism: Yes (QUESTIONABLE PE-WAS TX 30DAYS WITH BLOOD THINNER) Hx GERD: Yes Hx Liver Disease: No Hx Arthritis: Yes Hx Seizures: No Hx Asthma: Yes ( hx intubations x4, INHALERS PRN) Hx COPD: Yes Hx Tuberculosis: No Hx HIV: No - Surgical History Hx Breast Surgery: Yes (BREAST REDUCTION) Additional Surgical History: tubal ligation. tonsillectomy. pylonodal cyst. hysterectomy - Family History Family history: hypertension - Social History Smoking Status: Never Smoker - Medications Home Medications: Home Medications Medication Instructions Recorded Confirmed Last Taken Type amLODIPine 10 mg PO DAILY 04/16/15 06/12/19 06/11/19 05:00 History Multivitamin Tab [Multiple Vitamin 1 tab PO QDAY 03/02/17 06/12/19 12/09/18 06:00 History TAB (Theragran)] ALPRAZolam [Xanax TAB] 0.5 mg PO TID PRN #30 tab 07/17/17 06/09/19 Unknown Rx Ibuprofen [Motrin 800 MG tab] 800 mg PO Q8H PRN #20 tablet 07/17/17 06/12/19 06/10/19 05:00 Rx ALBUTEROL Inhaler(NF) [VENTOLIN 1 puff IH PRN PRN 10/09/18 06/12/19 05/12/19 06:00 History Inhaler(NF)] Montelukast [Singulair] 10 mg PO PRN PRN 10/09/18 06/12/19 12/09/18 05:00 History hydroCHLOROthiazide [Hctz] 12.5 mg PO QDAY 10/09/18 06/12/19 06/10/19 05:00 History HYDROcodone/APAP 7.5-325 [[place] 1 each PO Q6HR PRN #20 tablet 11/28/18 06/09/19 Unknown Rx 7.5-325 mg TAB] traMADoL [Ultram 50 MG tab] 50 mg PO Q4HR PRN #30 tablet 11/28/18 06/09/19 Unknown Rx HYDROcodone/APAP 5-325 [[place] 1 each PO Q4HR PRN #20 tablet 06/12/19 Unknown Rx 5-325 mg TAB] Doxycycline Hyclate [Doxycycline 100 mg PO Q12HR 7 Days #14 tab 09/01/19 Unknown Rx Hyclate TAB] Prednisone [predniSONE 10 mg 10 mg PO .TAPER #1 tab.ds.pk 09/01/19 Unknown Rx (6-Day Pack, 21 Tabs)] ED Physical Exam - General General appearance: alert, in distress, other (severe respiratory distress obvious work of breathing accessory muscle use tripod position unable to speak) - Head Head exam: Present: atraumatic, normocephalic - Eye Eye exam: Present: normal appearance - ENT ENT exam: Present: mucous membranes moist - Neck Neck exam: Present: normal inspection, full ROM - Respiratory Respiratory exam: Present: respiratory distress, wheezes, accessory muscle use, decreased breath sounds, prolonged expiratory. Absent: rales, rhonchi - Cardiovascular Cardiovascular Exam: Present: normal rhythm, tachycardia, normal heart sounds. Absent: systolic murmur, diastolic murmur, rubs, gallop - GI/Abdominal GI/Abdominal exam: Present: soft, normal bowel sounds. Absent: distended, tenderness, guarding, rebound - Extremities Exam Extremities exam: Present: normal inspection - Neurological Exam Neurological exam: Present: alert, oriented X3 - Psychiatric Psychiatric exam: Present: normal affect, anxious - Skin Skin exam: Present: intact, normal color, other (clammy, sweaty). Absent: rash ED Course - Reevaluation(s) Reevaluation #1: 09/01/19 14:04 Upon reassessment, improved air movement respiratory rate 22; on BiPAP ED Medical Decision Making - Lab Data Result diagrams: 09/01/19 12:37 - Medical Decision Making Status asthmaticus: Improving on BiPAP therapy. I recommended admission to the hospitalist service. She desires ED observation until she improves enough to go home. My colleague will reassess. Past history of chronic lower back pain followed by orthopedic surgeon. Asthma exacerbation has aggravated this known condition. I do not suspect pneumothorax or pulmonary embolism. Critical Care Time: Yes Critical care attestation.: 40 minutes of critical care time excluding procedures were used in the care of the patient. I came to the bedside immediately. I discussed case with RN and respiratory therapist regarding treatment plan. Patient required multiple interventions and reassessments. RT kept BIPAP At the bedside as needed. I was concerned for worsening respiratory failure. ED Disposition Clinical Impression: Status asthmaticus Disposition: - OP ADMIT IP TO THIS HOSP Is pt being admited?: No Does the pt Need Aspirin: No Condition: Stable Instructions: Asthma (ED) Prescriptions: Doxycycline Hyclate [Doxycycline Hyclate TAB] 100 mg PO Q12HR 7 Days #14 tab Prednisone [predniSONE 10 mg (6-Day Pack, 21 Tabs)] 10 mg PO .TAPER #1 tab.ds.pk Forms: Work/School Release Form(ED) <MARLON COCHRAN - Last Filed: 09/01/19 15:51> ED Review of Systems ROS: Stated complaint: MICHAEL Other details as noted in HPI ED Course Vital Signs 09/01/19 09/01/19 09/01/19 12:34 12:45 12:46 Temperature 98.6 F Pulse Rate 137 H 132 H 120 H Respiratory 31 H 32 H 32 H Rate Blood Pressure 178/88 186/88 Blood Pressure 178/88 [Right] O2 Sat by Pulse 99 100 100 Oximetry 09/01/19 09/01/19 09/01/19 13:00 13:16 13:30 Temperature Pulse Rate 122 H 122 H 119 H Respiratory 39 H 33 H 39 H Rate Blood Pressure 186/88 186/88 186/88 Blood Pressure [Right] O2 Sat by Pulse 98 100 99 Oximetry 09/01/19 09/01/19 09/01/19 13:46 14:00 14:09 Temperature Pulse Rate 122 H 105 H Respiratory 28 H 16 18 Rate Blood Pressure 186/88 186/88 Blood Pressure [Right] O2 Sat by Pulse 100 99 Oximetry 09/01/19 09/01/19 09/01/19 14:10 14:16 14:30 Temperature Pulse Rate 107 H 105 H Respiratory 18 29 H 14 Rate Blood Pressure 186/88 186/88 Blood Pressure [Right] O2 Sat by Pulse 99 99 Oximetry ED Medical Decision Making - Lab Data Result diagrams: 09/01/19 12:37 Critical care attestation.: If time is entered above; I have spent that time in minutes in the direct care of this critically ill patient, excluding procedure time. ED Disposition Is pt being admited?: Yes Time of Disposition: 15:51
[2019-09-01] MEDS ORDERED: ONDANSETRON 4 MG/2 ML INJ IV ONE (12:56)
[2019-09-01] MEDS ORDERED: dexAMETHasone 20 MG/5 ML VIAL IV ONE (12:56)
[2019-09-01] MEDS ORDERED: KETOROLAC 30 MG/1 ML INJ IV ONE (12:56)
[2019-09-01] MEDS ORDERED: ONDANSETRON 4 MG/2 ML INJ ONE (12:59)
[2019-09-01] MEDS ORDERED: MORPHINE 4 MG/1 ML INJ ONE ×2 (12:59→16:52)
[2019-09-01] MEDS ORDERED: dexAMETHasone 20 MG/5 ML VIAL ONE (13:03)
[2019-09-01] MEDS ORDERED: KETOROLAC 30 MG/1 ML INJ ONE (13:03)
[2019-09-01 13:36] LABS: Alanine Aminotransferase 13 units/L (7-56); Albumin 4.7 g/dL (3.9-5); BUN/Creatinine Ratio 13; Blood Urea Nitrogen 12 mg/dL (7-17); Calcium 9.6 mg/dL (8.4-10.2); Hemolysis Index 41
[2019-09-01] MEDS ORDERED: oxyCODONE /ACETAMINOPHEN 5-325MG TAB ONE (14:08)
[2019-09-01] MEDS ORDERED: oxyCODONE /ACETAMINOPHEN 5-325MG TAB PO ONE (14:09)
[2019-09-01 15:51] LABS: Basophils % (Auto) 0.3 % (0.0-1.8); Eosinophils % (Auto) 0.1 % (0.0-4.3); Hematocrit 41.6 % (30.3-42.9); Hemoglobin 13.6 gm/dl (10.1-14.3); Lymphocytes % (Auto) 25.2 % (13.4-35.0); Mean Corpuscular HGB Conc 33 % (30-34); Mean Corpuscular Volume 85 fl (79-97); Monocytes # (Auto) 0.2 K/mm3 (0.0-0.8); Monocytes % (Auto) 2.3 % (0.0-7.3); Platelet Count 178 K/mm3 (140-440); Red Blood Count 4.91 M/mm3 (3.65-5.03); Red Cell Distribution Width 13.5 % (13.2-15.2)
--- NOTE | 2019-09-01 16:09 | XRay Report ---
CHEST 1 VIEW INDICATION: sob. COMPARISON: 07/15/2017 FINDINGS: Support devices: None. Heart: Within normal limits. Lungs/Pleura: No acute air space or interstitial disease. Additional findings: None. IMPRESSION: No acute findings. Signer Name: Edgar Mariscal Jr, MD Signed: 09/01/2019 4:05 PM Workstation Name: [id number]
[2019-09-01] MEDS ORDERED: MORPHINE 4 MG/1 ML INJ IV ONE (16:54)
[2019-09-01] MEDS ORDERED: oxyCODONE /ACETAMINOPHEN 5-325MG TAB PO PRN (21:36)
[2019-09-01] MEDS ORDERED: METOCLOPRAMIDE 10 MG/2 ML INJ IV PRN (21:36)
[2019-09-01] MEDS ORDERED: ACETAMINOPHEN 325 MG TAB PO PRN (21:36)
[2019-09-01] MEDS ORDERED: IPRATROPIUM/ALBUTEROL SULFATE 3 ML AMPUL.NEB IH PRN (21:38)
[2019-09-01] MEDS ORDERED: traMADol 50 MG TAB PO PRN (21:39)
[2019-09-01] MEDS ORDERED: MONTELUKAST 10 MG TAB PO PRN (21:39)
[2019-09-01] MEDS ORDERED: ALBUTEROL 8.5 GM INHALATION IH PRN (21:39)
--- NOTE | 2019-09-01 21:41 | History and Physical Report ---
History of Present Illness Date of examination: 09/01/19 Date of admission: 09/01/19 16:06 Chief complaint: Severe wheezing for last 4 hours History of present illness: 44 yo female with hx of severe asthma, 4 intubations who presents with asthma attack. 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 Normally has a severe attack every 2 years. Has been in her normal health. Unable to give much hx due to severe shortness of breath. - Past Medical History Previous Medical History?: Yes Hypertension: Yes (X 2 YRS) Pulmonary Embolism: Yes (QUESTIONABLE PE-WAS TX 30DAYS WITH BLOOD THINNER) GERD: Yes Arthritis: Yes Asthma: Yes ( hx intubations x4, INHALERS PRN) Surgical History Hx Breast Surgery: Yes (BREAST REDUCTION) Additional Surgical History: tubal ligation. tonsillectomy. pylonodal cyst. hysterectomy Family History Family history: hypertension Social History Smoking Status: Never Smoker Medications Home Medications: Home Medications Medication Instructions Recorded Confirmed Last Taken Type amLODIPine 10 mg PO DAILY 04/16/15 06/12/19 06/11/19 05:00 History Multivitamin Tab [Multiple Vitamin 1 tab PO QDAY 03/02/17 06/12/19 12/09/18 06:00 History TAB (Theragran)] ALPRAZolam [Xanax TAB] 0.5 mg PO TID PRN #30 tab 07/17/17 06/09/19 Unknown Rx Ibuprofen [Motrin 800 MG tab] 800 mg PO Q8H PRN #20 tablet 07/17/17 06/12/19 06/10/19 05:00 Rx ALBUTEROL Inhaler(NF) [VENTOLIN 1 puff IH PRN PRN 10/09/18 06/12/19 05/12/19 06:00 History Inhaler(NF)] Montelukast [Singulair] 10 mg PO PRN PRN 10/09/18 06/12/19 12/09/18 05:00 History hydroCHLOROthiazide [Hctz] 12.5 mg PO QDAY 10/09/18 06/12/19 06/10/19 05:00 History HYDROcodone/APAP 7.5-325 [[place] 1 each PO Q6HR PRN #20 tablet 11/28/18 06/09/19 Unknown Rx 7.5-325 mg TAB] traMADoL [Ultram 50 MG tab] 50 mg PO Q4HR PRN #30 tablet 11/28/18 06/09/19 Unknown Rx HYDROcodone/APAP 5-325 [[place] 1 each PO Q4HR PRN #20 tablet 06/12/19 Unknown Rx 5-325 mg TAB] Doxycycline Hyclate [Doxycycline 100 mg PO Q12HR 7 Days #14 tab 09/01/19 Unknown Rx Hyclate TAB] Prednisone [predniSONE 10 mg 10 mg PO .TAPER #1 tab.ds.pk 09/01/19 Unknown Rx (6-Day Pack, 21 Tabs)] Review of Systems Comment: Unobtainable due to pts medical conditions (severe work of breathing, severe respiratory distress unable to speak) Medications and Allergies Allergies Allergy/AdvReac Type Severity Reaction Status Date / Time [place] And Derivatives Allergy Hives Verified 10/09/18 11:04 Iodinated Contrast Media Allergy Shortness Verified 03/02/17 15:17 [Iodinated Contrast Media - of Breath IV Dye] morphine Allergy CAUSES Verified 03/02/17 15:17 EXCITABILITY Home Medications Medication Instructions Recorded Confirmed Last Taken Type amLODIPine 10 mg PO DAILY 04/16/15 09/02/19 06/11/19 05:00 History Multivitamin Tab [Multiple Vitamin 1 tab PO QDAY 03/02/17 09/02/19 12/09/18 06:00 History TAB (Theragran)] ALPRAZolam [Xanax TAB] 0.5 mg PO TID PRN #30 tab 07/17/17 09/02/19 Unknown Rx Ibuprofen [Motrin 800 MG tab] 800 mg PO Q8H PRN #20 tablet 07/17/17 09/02/19 06/10/19 05:00 Rx ALBUTEROL Inhaler(NF) [VENTOLIN 1 puff IH PRN PRN 10/09/18 09/02/19 05/12/19 06:00 History Inhaler(NF)] Montelukast [Singulair] 10 mg PO PRN PRN 10/09/18 09/02/19 12/09/18 05:00 History hydroCHLOROthiazide [Hctz] 12.5 mg PO QDAY 10/09/18 09/02/19 06/10/19 05:00 History HYDROcodone/APAP 7.5-325 [[place] 1 each PO Q6HR PRN #20 tablet 11/28/18 09/02/19 Unknown Rx 7.5-325 mg TAB] traMADoL [Ultram 50 MG tab] 50 mg PO Q4HR PRN #30 tablet 11/28/18 09/02/19 Unknown Rx HYDROcodone/APAP 5-325 [[place] 1 each PO Q4HR PRN #20 tablet 06/12/19 09/02/19 Unknown Rx 5-325 mg TAB] Doxycycline Hyclate [Doxycycline 100 mg PO Q12HR 7 Days #14 tab 09/01/19 Unknown Rx Hyclate TAB] Prednisone [predniSONE 10 mg 10 mg PO .TAPER #1 tab.ds.pk 09/01/19 Unknown Rx (6-Day Pack, 21 Tabs)] Exam - Constitutional Vitals: Temp Pulse Resp BP Pulse Ox 98.6 F 110 H 29 H 146/87 96 09/01/19 12:45 09/01/19 19:37 09/01/19 19:37 09/01/19 16:46 09/01/19 16:46 General appearance: Present: no acute distress, well-nourished - EENT Eyes: Present: PERRL ENT: hearing intact, clear oral mucosa - Neck Neck: Present: supple, normal ROM - Respiratory Respiratory effort: normal Respiratory: bilateral: diminished, rhonchi, wheezing - Cardiovascular Heart rate: 78 Rhythm: regular Heart Sounds: Present: S1 & S2. Absent: rub, click - Extremities Extremities: pulses symmetrical, No edema Peripheral Pulses: within normal limits - Abdominal General gastrointestinal: Present: soft, non-tender, non-distended, normal bowel sounds Female genitourinary: Present: normal - Rectal Rectal Exam: deferred - Integumentary Integumentary: Present: clear, warm, dry - Musculoskeletal Musculoskeletal: gait normal, strength equal bilaterally - Psychiatric Psychiatric: appropriate mood/affect, intact judgment & insight - Neurologic Neurologic: CNII-XII intact, moves all extremities - Allied Health Allied health notes reviewed: nursing, case management Results - Labs CBC & Chem 7: 09/02/19 04:39 09/02/19 04:39 Labs: Laboratory Last Values WBC 7.8 K/mm3 (4.5-11.0) 09/01/19 14:16 RBC 4.91 M/mm3 (3.65-5.03) 09/01/19 14:16 Hgb 13.6 gm/dl (10.1-14.3) 09/01/19 14:16 Hct 41.6 % (30.3-42.9) 09/01/19 14:16 MCV 85 fl (79-97) 09/01/19 14:16 MCH 28 pg (28-32) 09/01/19 14:16 MCHC 33 % (30-34) 09/01/19 14:16 RDW 13.5 % (13.2-15.2) 09/01/19 14:16 Plt Count 178 K/mm3 (140-440) 09/01/19 14:16 Lymph % (Auto) 25.2 % (13.4-35.0) 09/01/19 14:16 [place] % (Auto) 2.3 % (0.0-7.3) 09/01/19 14:16 Eos % (Auto) 0.1 % (0.0-4.3) 09/01/19 14:16 Baso % (Auto) 0.3 % (0.0-1.8) 09/01/19 14:16 Lymph # 2.0 K/mm3 (1.2-5.4) 09/01/19 14:16 [place] # 0.2 K/mm3 (0.0-0.8) 09/01/19 14:16 Eos # 0.0 K/mm3 (0.0-0.4) 09/01/19 14:16 Baso # 0.0 K/mm3 (0.0-0.1) 09/01/19 14:16 Seg Neutrophils % 72.1 % (40.0-70.0) H 09/01/19 14:16 Seg Neutrophils # 5.6 K/mm3 (1.8-7.7) 09/01/19 14:16 POC ABG pH 7.414 (7.35-7.45) 09/01/19 16:33 POC ABG pCO2 31.5 (35-45) L 09/01/19 16:33 POC ABG pO2 170 (80-105) H 09/01/19 16:33 POC ABG HCO3 20.1 (22-26 mml/L) 09/01/19 16:33 POC ABG Total CO2 21 (23-27mmol/L) 09/01/19 16:33 POC ABG O2 Sat 100 09/01/19 16:33 POC ABG Base Excess -4 ((-2) - (+3)mmol/L) 09/01/19 16:33 FiO2 30 % 09/01/19 16:33 Sodium 139 mmol/L (137-145) 09/01/19 12:37 Potassium 3.7 mmol/L (3.6-5.0) 09/01/19 12:37 Chloride 103.1 mmol/L (98-107) 09/01/19 12:37 Carbon Dioxide 16 mmol/L (22-30) L 09/01/19 12:37 Anion Gap 24 mmol/L 09/01/19 12:37 BUN 12 mg/dL (7-17) 09/01/19 12:37 Creatinine 0.9 mg/dL (0.7-1.2) 09/01/19 12:37 Estimated GFR > 60 ml/min 09/01/19 12:37 BUN/Creatinine Ratio 13 % 09/01/19 12:37 Glucose 94 mg/dL (65-100) 09/01/19 12:37 Calcium 9.6 mg/dL (8.4-10.2) 09/01/19 12:37 Total Bilirubin 0.60 mg/dL (0.1-1.2) 09/01/19 12:37 AST 20 units/L (5-40) 09/01/19 12:37 ALT 13 units/L (7-56) 09/01/19 12:37 Alkaline Phosphatase 61 units/L (35-129) 09/01/19 12:37 Total Protein 7.8 g/dL (6.3-8.2) 09/01/19 12:37 Albumin 4.7 g/dL (3.9-5) 09/01/19 12:37 Albumin/Globulin Ratio 1.5 % 09/01/19 12:37 Short CBC 09/01/19 09/02/19 Range/Units 14:16 04:39 WBC 7.8 9.9 (4.5-11.0) K/mm3 Hgb 13.6 12.8 (10.1-14.3) gm/dl Hct 41.6 39.4 (30.3-42.9) % Plt Count 178 181 (140-440) K/mm3 BMP 09/02/19 04:39 Sodium 139 Potassium 3.9 Chloride 101.9 Carbon Dioxide 20 L BUN 17 Creatinine 1.3 H Glucose 303 H Calcium 9.3 Liver Function 09/02/19 Range/Units 04:39 Total Bilirubin 0.30 (0.1-1.2) mg/dL AST 17 (5-40) units/L ALT 13 (7-56) units/L Alkaline Phosphatase 55 (35-129) units/L Albumin 4.4 (3.9-5) g/dL - Imaging and Cardiology EKG: report reviewed Chest x-ray: report reviewed (NAF) Assessment and Plan Advance Directives: Yes (Full code) VTE prophylaxis?: Chemical Plan of care discussed with patient/family: Yes - Patient Problems (1) Acute respiratory failure with hypoxia Current Visit: No Status: Acute Plan to address problem: Patient was hypoxic initially Improved with BIPAP And O2 And Neb trearments (2) Acute asthma exacerbation Current Visit: Yes Status: Acute Qualifiers: Asthma severity: severe Plan to address problem: initiated on IV solumedrol,IV Levaquin and Duonebs RTC and prn Cont Montelukast pulmonary consult (3) HTN (hypertension) Current Visit: Yes Status: Chronic Qualifiers: Hypertension type: essential hypertension Qualified Code(s): I10 - Essential (primary) hypertension Plan to address problem: Cont anti hypertensives (4) DVT prophylaxis Current Visit: No Status: Acute (5) DVT prophylaxis Current Visit: No Status: Acute Plan to address problem: On Heparin and GI prophylaxis
[2019-09-01] MEDS ORDERED: SODIUM CHLORIDE 0.9% 1000 ML 1,000 ML IV SCH (21:45)
[2019-09-01] MEDS: methylPREDNISolone Sod Succinate 125 MG/2 ML INJ IV SCH (22:21)
[2019-09-01] MEDS: hydroCHLOROthiazide 12.5 MG CAP PO SCH (22:27)
[2019-09-01] MEDS: amLODIPine 10 MG TAB PO SCH (22:27)
[2019-09-01] MEDS: ALBUTEROL 2.5 MG/3 ML NEBU IH PRN (22:42)
[2019-09-02] MEDS: HYDROmorphone 1 MG/1 ML INJ IV PRN ×3 (00:16→13:05)
[2019-09-02] MEDS: ONDANSETRON 4 MG/2 ML INJ IV PRN ×3 (00:23→13:04)
[2019-09-02] MEDS: ALBUTEROL 2.5 MG/3 ML NEBU IH PRN (01:04)
[2019-09-02] MEDS: ALPRAZolam 0.5 MG TAB PO PRN ×2 (01:37→08:27)
[2019-09-02 04:31] VITALS: BP 147/86
[2019-09-02 05:14] LABS: Basophils % (Auto) 0.1 % (0.0-1.8); Hematocrit 39.4 % (30.3-42.9); Hemoglobin 12.8 gm/dl (10.1-14.3); Lymphocytes # (Auto) 0.9 K/mm3 (1.2-5.4); Lymphocytes % (Auto) 8.8 % (13.4-35.0); Mean Corpuscular HGB Conc 33 % (30-34); Mean Corpuscular Volume 86 fl (79-97); Monocytes # (Auto) 0.2 K/mm3 (0.0-0.8); Monocytes % (Auto) 1.8 % (0.0-7.3); Platelet Count 181 K/mm3 (140-440); Red Cell Distribution Width 13.8 % (13.2-15.2)
[2019-09-02 05:41] LABS: Albumin 4.4 g/dL (3.9-5); Calcium 9.3 mg/dL (8.4-10.2)
[2019-09-02] MEDS: methylPREDNISolone Sod Succinate 125 MG/2 ML INJ IV SCH ×2 (06:52→14:35)
[2019-09-02] MEDS: IPRATROPIUM/ALBUTEROL SULFATE 3 ML AMPUL.NEB IH SCH ×2 (08:05→12:29)
[2019-09-02] MEDS: hydroCHLOROthiazide 12.5 MG CAP PO SCH (09:22)
[2019-09-02] MEDS: amLODIPine 10 MG TAB PO SCH (09:22)
[2019-09-02] MEDS ORDERED: MULTIVITAMINS ,THERAPEUTIC TAB PO SCH (10:00)
--- NOTE | 2019-09-02 14:17 | Consultation ---
History of Present Illness Consult date: 09/02/19 Requesting physician: ORA LAGUNA Reason for consult: asthma History of present illness: 44 y/o female with known asthma, admitted with asthma exacerbation. Past History Past Medical History: other (asthma) Social history: , lives with family Family history: no significant family history Medications and Allergies Allergies Allergy/AdvReac Type Severity Reaction Status Date / Time [place] And Derivatives Allergy Hives Verified 10/09/18 11:04 Iodinated Contrast Media Allergy Shortness Verified 03/02/17 15:17 [Iodinated Contrast Media - of Breath IV Dye] morphine Allergy CAUSES Verified 03/02/17 15:17 EXCITABILITY Home Medications Medication Instructions Recorded Confirmed Last Taken Type amLODIPine 10 mg PO DAILY 04/16/15 09/02/19 06/11/19 05:00 History Multivitamin Tab [Multiple Vitamin 1 tab PO QDAY 03/02/17 09/02/19 12/09/18 06:00 History TAB (Theragran)] ALPRAZolam [Xanax TAB] 0.5 mg PO TID PRN #30 tab 07/17/17 09/02/19 Unknown Rx Ibuprofen [Motrin 800 MG tab] 800 mg PO Q8H PRN #20 tablet 07/17/17 09/02/19 06/10/19 05:00 Rx ALBUTEROL Inhaler(NF) [VENTOLIN 1 puff IH PRN PRN 10/09/18 09/02/19 05/12/19 06:00 History Inhaler(NF)] Montelukast [Singulair] 10 mg PO PRN PRN 10/09/18 09/02/19 12/09/18 05:00 History hydroCHLOROthiazide [Hctz] 12.5 mg PO QDAY 10/09/18 09/02/19 06/10/19 05:00 History HYDROcodone/APAP 7.5-325 [[place] 1 each PO Q6HR PRN #20 tablet 11/28/18 09/02/19 Unknown Rx 7.5-325 mg TAB] traMADoL [Ultram 50 MG tab] 50 mg PO Q4HR PRN #30 tablet 11/28/18 09/02/19 Unknown Rx HYDROcodone/APAP 5-325 [[place] 1 each PO Q4HR PRN #20 tablet 06/12/19 09/02/19 Unknown Rx 5-325 mg TAB] Doxycycline Hyclate [Doxycycline 100 mg PO Q12HR 7 Days #14 tab 09/01/19 Unknown Rx Hyclate TAB] Prednisone [predniSONE 10 mg 10 mg PO .TAPER #1 tab.ds.pk 09/01/19 Unknown Rx (6-Day Pack, 21 Tabs)] Active Meds: Active Medications Acetaminophen (Tylenol) 650 mg PO Q4H PRN PRN Reason: Pain MILD(1-3)/Fever >100.5/[place] Albuterol (Proventil) 2.5 mg IH Q3HRT PRN PRN Reason: Shortness Of Breath/ Wheezing Last Admin: 09/02/19 01:04 Dose: 2.5 mg Documented by: Albuterol/Ipratropium (Duoneb *Not For Prn Use*) 1 ampul IH QIDRT [facility] Last Admin: 09/02/19 12:29 Dose: 1 ampul Documented by: Alprazolam (Xanax) 0.5 mg PO TID PRN PRN Reason: Anxiety Last Admin: 09/02/19 08:27 Dose: 0.5 mg Documented by: Amlodipine Besylate (Amlodipine) 10 mg PO DAILY [facility] Last Admin: 09/02/19 09:22 Dose: 10 mg Documented by: Budesonide (Pulmicort) 0.5 mg IH Q12HRT [facility] Hydrochlorothiazide (Hctz) 12.5 mg PO QDAY [facility] Last Admin: 09/02/19 09:22 Dose: 12.5 mg Documented by: Hydromorphone HCl (Dilaudid) 1 mg IV Q3H PRN PRN Reason: Pain , Severe (7-10) Last Admin: 09/02/19 13:05 Dose: 1 mg Documented by: Sodium Chloride (Nacl 0.9% 1000 Ml) 1,000 mls @ 42 mls/hr IV DIRECT [facility] Last Admin: 09/01/19 22:21 Dose: 42 mls/hr Documented by: Levofloxacin/Dextrose (Levaquin 750mg/150ml) 750 mg in 150 mls @ 100 mls/hr IV Q24H [facility]; Protocol Stop: 09/05/19 23:29 Last Admin: 09/01/19 22:28 Dose: 100 mls/hr Documented by: Methylprednisolone Sodium Succinate (Solu-Medrol) 125 mg IV Q8HR [facility] Last Admin: 09/02/19 06:52 Dose: 125 mg Documented by: Metoclopramide HCl (Reglan) 10 mg IV Q6H PRN PRN Reason: Nausea And Vomiting Montelukast Sodium (Singulair) 10 mg PO DAILY PRN PRN Reason: Allergy Symptoms Multivitamins (Theragran Tab) 1 each PO QDAY [facility] Last Admin: 09/02/19 09:22 Dose: 1 each Documented by: Ondansetron HCl (Zofran) 4 mg IV Q3H PRN PRN Reason: Nausea And Vomiting Last Admin: 09/02/19 13:04 Dose: 4 mg Documented by: Oxycodone/Acetaminophen (Percocet 5/325) 1 tab PO Q6H PRN PRN Reason: Pain, Moderate (4-6) Last Admin: 09/02/19 11:15 Dose: 1 tab Documented by: Sodium Chloride (Sodium Chloride Flush Syringe 10 Ml) 10 ml IV BID [facility] Last Admin: 09/02/19 09:23 Dose: Not Given Documented by: Sodium Chloride (Sodium Chloride Flush Syringe 10 Ml) 10 ml IV PRN PRN PRN Reason: LINE FLUSH Review of Systems All systems: negative Physical Examination Vital signs: Vital Signs Pulse Resp Pulse Ox 137 H 31 H 99 09/01/19 12:34 09/01/19 12:34 09/01/19 12:34 General appearance: alert Eyes: non-icteric ENT: oropharynx moist Neck: supple Ascultation: Bilateral: diminished breath sounds (with scant wheezing) Percussion: Bilateral: not dull Tactile fremitus: Bilateral: normal Cardiovascular: regular rate and rhythm Gastrointestinal: normoactive bowel sounds, soft Results - Laboratory Findings CBC and BMP: 09/02/19 04:39 09/02/19 04:39 ABG POC ABG pH 7.414 (7.35-7.45) 09/01/19 16:33 POC ABG pCO2 31.5 (35-45) L 09/01/19 16:33 POC ABG pO2 170 (80-105) H 09/01/19 16:33 POC ABG HCO3 20.1 (22-26 mml/L) 09/01/19 16:33 POC ABG Total CO2 21 (23-27mmol/L) 09/01/19 16:33 POC ABG O2 Sat 100 09/01/19 16:33 Abnormal lab findings: Abnormal Labs 09/01/19 09/01/19 09/01/19 12:37 14:16 16:33 Lymph % (Auto) Lymph # Seg Neutrophils % 72.1 H Seg Neutrophils # POC ABG pCO2 31.5 L POC ABG pO2 170 H Carbon Dioxide 16 L Creatinine Glucose 09/02/19 09/02/19 04:39 04:39 Lymph % (Auto) 8.8 L Lymph # 0.9 L Seg Neutrophils % 89.3 H Seg Neutrophils # 8.9 H POC ABG pCO2 POC ABG pO2 Carbon Dioxide 20 L Creatinine 1.3 H Glucose 303 H Assessment and Plan 44 y/o female with acute exacerbation of asthma. Per patient has to be discharged today. 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 She can be trusted and would come back if she needed to.
--- NOTE | 2019-09-02 15:58 | Discharge Summary ---
Providers - Providers Date of Admission: 09/01/19 16:06 Date of discharge: 09/02/19 Attending physician: ORA LAGUNA 09/01/19 21:36 Consult to Physician [CONS] Routine Comment: Consulting Provider: ELIZABETH GUERRA Physician Instructions: Reason For Exam: asthma exacerbation [facility] Condition: Stable Hospital course: History of present illness: 44 yo female with hx of severe asthma, 4 intubations who presents with asthma attack. 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 Normally has a severe attack every 2 years. Has been in her normal health. Unable to give much hx due to severe shortness of breath. patient improved over next 24 hours (1) Acute respiratory failure with hypoxia Current Visit: No Status: Acute Plan to address problem: Patient was hypoxic initially Improved with BIPAP And O2 And Neb trearments Discharge on PO Levaquin and tapering dose of Predniisone Improved and back to near baseline over the last 24 hours (2) Acute asthma exacerbation Current Visit: Yes Status: Acute Qualifiers: Asthma severity: severe Plan to address problem: initiated on IV solumedrol,IV Levaquin and Duonebs RTC and prn COnt oral Levaquin and tapering dose of steroids Cont Montelukast F/u with pulmonary --Dr Guerra as outpatient (3) HTN (hypertension) Current Visit: Yes Status: Chronic Qualifiers: Hypertension type: essential hypertension Qualified Code(s): I10 - Essential (primary) hypertension Plan to address problem: Cont anti hypertensives Disposition: - TO HOME OR SELFCARE Core Measure Documentation - Palliative Care Palliative Care/ Comfort Measures: Not Applicable - Core Measures Any of the following diagnoses?: none Exam - Constitutional Vitals: Temp Pulse Resp BP Pulse Ox 98.3 F 110 H 18 147/86 97 09/02/19 03:17 09/02/19 12:33 09/02/19 12:33 09/02/19 03:17 09/02/19 03:17 General appearance: Present: no acute distress, well-nourished - EENT Eyes: Present: PERRL ENT: hearing intact, clear oral mucosa - Neck Neck: Present: supple, normal ROM - Respiratory Respiratory effort: normal Respiratory: bilateral: CTA, rhonchi, wheezing - Cardiovascular Heart rate: 78 Rhythm: regular Heart Sounds: Present: S1 & S2. Absent: rub, click - Extremities Extremities: no ischemia, pulses symmetrical, No edema Peripheral Pulses: within normal limits - Abdominal General gastrointestinal: Present: soft, non-tender, non-distended, normal bowel sounds Female genitourinary: Present: normal - Rectal Rectal Exam: deferred - Integumentary Integumentary: Present: clear, warm, dry - Musculoskeletal Musculoskeletal: gait normal, strength equal bilaterally - Psychiatric Psychiatric: appropriate mood/affect, intact judgment & insight - Neurologic Neurologic: CNII-XII intact, moves all extremities - Allied Health Allied health notes reviewed: nursing, case management Plan Activity: no restrictions [facility] [Primary Care Provider] - 7 Days ELIZABETH GUERRA MD [Staff Physician] - 7 Days Forms: Work/School Release Form(ED) Prescriptions: Doxycycline Hyclate [Doxycycline Hyclate TAB] 100 mg PO Q12HR 7 Days #14 tab Prednisone [predniSONE 10 mg (6-Day Pack, 21 Tabs)] 10 mg PO .TAPER #1 tab.ds.pk
[2019-09-02] MEDS ORDERED: BUDESONIDE 0.5 MG/2 ML NEBU IH SCH (20:00)
== END 2019-09-02 17:29 | disposition home or self-care (01) ==
LOC: ED 12:27 → 4A 16:06
PROVIDERS: ADMIT Internal Medicine; ATTEND Internal Medicine
DX: J45.902 Unspecified asthma with status asthmaticus (principal); J96.01 Acute respiratory failure with hypoxia; I10 Essential (primary) hypertension; K21.9 Gastro-esophageal reflux disease without esophagitis; M19.90 Unspecified osteoarthritis, unspecified site; Z86.711 Personal history of pulmonary embolism; Z98.51 Tubal ligation status; Z90.89 Acquired absence of other organs; Z90.710 Acquired absence of both cervix and uterus; Z79.51 Long term (current) use of inhaled steroids; Z79.899 Other long term (current) drug therapy
CPT/HCPCS: 36415; 36600; 71045; 80053; 82803; 83036; 85025; 94640; 94644; 96365; 96366; 96367; 96375; 96376; 99291; G0378; J1100; J1170; J1885; J1956; J2270; J2405; J2930; J3475; J7030

== ENCOUNTER 2020-09-13 11:49 | Outpatient (CLI) | payer BC ==
[2020-09-13 13:00] LABS: Alanine Aminotransferase 17 units/L (7-56); Albumin 4.3 g/dL (3.9-5); BUN/Creatinine Ratio 14; Blood Urea Nitrogen 13 mg/dL (7-17); Calcium 9.4 mg/dL (8.4-10.2); Chol/HDL Ratio 2.84 %; HDL Cholesterol 72 mg/dL (40-59); Hemolysis Index 13; LDL Cholesterol,Direct 124 mg/dL (50-130)
== END 2020-09-13 11:50 | disposition home or self-care (01) ==
LOC: LAB 11:49
PROVIDERS: ATTEND Nurse Practitioner Family
DX: I10 Essential (primary) hypertension (principal); U07.1 COVID-19
CPT/HCPCS: 36415; 80053; 80061

== ENCOUNTER 2020-11-05 10:25 | Outpatient (CLI) | payer BC ==
--- NOTE | 2020-11-05 11:31 | XRay Report ---
LUMBOSACRAL SPINE 3 VIEWS INDICATION: BACK PAIN. COMPARISON: None available IMPRESSION: Normal alignment. Mild to moderate multilevel degenerative disc disease is evident. L4- 5 appears to be the most affected level. Minimal diffuse facet arthropathy is identified. The SI join ts and upper sacrum are unremarkable. No acute osseous or soft tissue abnormality. Signer Name: Edgar Mariscal Jr, MD Signed: 11/05/2020 11:26 AM Workstation Name: [id number]
--- NOTE | 2020-11-05 14:31 | Mammography Report ---
DIGITAL SCREENING MAMMOGRAM WITH CAD, 11/05/2020 CLINICAL INFORMATION / INDICATION: Routine screening mammography. SCREENING MAMMOGRAM TECHNIQUE: Digital bilateral 2D mammography was obtained in the craniocaudal and mediolateral obliqu e projections. This examination was interpreted with the benefit of Computer-Aided Detection analysis . COMPARISON: 10/15/2018 for the right, there is no comparison for the left breast. FINDINGS: Breast Density: There are scattered areas of fibroglandular density. No dominant mass, suspicious calcifications, or architectural distortion in either breast. IMPRESSION: No mammographic evidence of malignancy. Follow up recommendation: Routine yearly BI-RADS Category 1: Negative. A "normal" or negative report should not discourage follow up or biopsy of a clinically significant f inding. A written summary of these findings will be mailed to the patient. The patient will be entered into a mammography reporting system which will generate a reminder letter for the patient's next appointmen t at the appropriate interval. The [employer] recommends yearly mammograms starting at age 40 and continuing as l keke as a woman is in good health. Breast MRI is recommended for women with an approximate 20-25% or greater lifetime risk of breast cancer, including women with a strong family history of breast or ova joy cancer or who have been treated for Hodgkin's disease. Signer Name: Antwan Bradford MD Signed: 11/05/2020 2:27 PM Workstation Name: [id number]
== END 2020-11-05 10:26 | disposition home or self-care (01) ==
LOC: MAMMO 10:25
PROVIDERS: ATTEND Nurse Practitioner Family
DX: Z12.31 Encounter for screening mammogram for malignant neoplasm of breast (principal); M51.36 Other intervertebral disc degeneration, lumbar region
CPT/HCPCS: 72100; 77067

== ENCOUNTER 2021-06-24 07:09 | Outpatient (CLI) | payer BC ==
--- NOTE | 2021-06-24 09:17 | Magnetic Resonance Report ---
MRI RIGHT KNEE WITHOUT CONTRAST INDICATION / CLINICAL INFORMATION: RIGHT KNEE DJD, RIGHT KNEE PAIN. TECHNIQUE: Multiplanar, multisequence MR images were obtained. No contrast used. COMPARISON: None available. FINDINGS: ACL: No significant abnormality. PCL: No significant abnormality. DISTAL QUADRICEPS TENDON: No significant abnormality. PATELLAR TENDON: No significant abnormality. MEDIAL MENISCUS: No significant abnormality. LATERAL MENISCUS: Complex tear within the body and anterior horn POSTEROLATERAL CORNER: No significant abnormality. MCL: No significant abnormality. LCL: No significant abnormality. DISTAL IT BAND: No significant abnormality. PATELLOFEMORAL ALIGNMENT: No significant abnormality. ARTICULAR CARTILAGE: There is moderate chondromalacia and cartilage loss and lateral patellar facet a nd lateral trochlea. Mild diffuse chondral thinning in the lateral compartment JOINT SPACE: Joint effusion small popliteal cyst No intra-articular bodies. BONES: No significant bone marrow edema. No fracture. No osseous lesion. SOFT TISSUES: No significant abnormality. ADDITIONAL FINDINGS: None. IMPRESSION: 1. Complex tear in the body and anterior horn of the lateral meniscus. 2. Joint effusion and popliteal cyst. 3. 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
== END 2021-06-24 07:10 | disposition home or self-care (01) ==
LOC: MRI 07:09
PROVIDERS: ATTEND Family Medicine Sports Medicine
DX: S83.271A Complex tear of lateral meniscus, current injury, right knee, initial encounter (principal); M17.11 Unilateral primary osteoarthritis, right knee; M94.261 Chondromalacia, right knee; M71.21 Synovial cyst of popliteal space [Baker], right knee; M25.461 Effusion, right knee; X58.XXXA Exposure to other specified factors, initial encounter; Y92.89 Other specified places as the place of occurrence of the external cause; Y93.89 Activity, other specified; Y99.8 Other external cause status
CPT/HCPCS: 73721

== ENCOUNTER 2021-10-14 12:47 | Outpatient (CLI) | payer OTHER ==
[2021-10-14 13:26] LABS: Albumin 4.9 g/dL (3.9-5); Calcium 9.9 mg/dL (8.4-10.2); Chol/HDL Ratio 4.01 %
[2021-10-18 15:09] LABS: Vitamin D, 25-OH, D2 51 ng/mL
== END 2021-10-14 12:48 | disposition home or self-care (01) ==
LOC: LAB 12:47
DX: E78.2 Mixed hyperlipidemia (principal); E55.9 Vitamin D deficiency, unspecified; I10 Essential (primary) hypertension
CPT/HCPCS: 36415; 80053; 80061; 82306

== ENCOUNTER 2021-12-19 09:25 | Outpatient (CLI) | payer BC ==
--- NOTE | 2021-12-19 11:54 | Magnetic Resonance Report ---
MRI LUMBAR SPINE 12/19/2021 INDICATION / CLINICAL INFORMATION: M54.16. Low back pain COMPARISON: None available. FINDINGS: GENERAL OBSERVATIONS: Unenhanced MR images of the lumbar spine were obtained. There is no evidence of acute abnormality. OHAQP-NG-ADOSS ANALYSIS: L5-S1: Disc profile is well preserved. Mild facet degenerative change. L4-5: Moderate diffuse disc bulging and facet degenerative changes. Mild central canal narrowing with no evidence of lateralization. L3-4: Moderate diffuse disc bulging and shallow left paracentral disc protrusion. Mild facet degenera tive changes. L2-3: Unremarkable. L1-2: Minimal diffuse disc bulging. BONE MARROW: Degenerative changes, most pronounced at the L4-5 level associated with degenerative end plate irregularity and Schmorl's nodes. Otherwise unremarkable. SPINAL CORD/CAUDA EQUINA: Unremarkable PARASPINAL SOFT TISSUES: No significant abnormality. IMPRESSION: Mild to moderate degenerative changes, most pronounced at L4-5. No evidence of stenosis or nerve root compression. Signer Name: Placido Rowley MD Signed: 12/19/2021 11:49 AM Workstation Name: [id number]
--- NOTE | 2021-12-21 08:54 | Mammography Report ---
DIGITAL SCREENING MAMMOGRAM WITH CAD, 12/19/2021 CLINICAL INFORMATION / INDICATION: Routine screening mammography. TECHNIQUE: Digital bilateral 2D mammography was obtained in the craniocaudal and mediolateral obliqu e projections. This examination was interpreted with the benefit of Computer-Aided Detection analysis . COMPARISON: 11/05/2020, 10/15/2018, 02/28/2018 FINDINGS: Breast Density: There are scattered areas of fibroglandular density. No dominant mass, suspicious calcifications, or architectural distortion in the right breast. There is a new 7 mm oval nodular density within the posterior central left breast which will require additional evaluation. IMPRESSION: New left breast density as described which will require additional evaluation with spot c ompression views and possible ultrasound. Follow up recommendation: Special View: Spot BI-RADS Category 0: INCOMPLETE. Needs additional imaging evaluation and/or prior mammograms for mary jane conway. A "normal" or negative report should not discourage follow up or biopsy of a clinically significant f inding. A written summary of these findings will be mailed to the patient. The patient will be entered into a mammography reporting system which will generate a reminder letter for the patient's next appointmen t at the appropriate interval. The [employer] recommends yearly mammograms starting at age 40 and continuing as l keke as a woman is in good health. Breast MRI is recommended for women with an approximate 20-25% or greater lifetime risk of breast cancer, including women with a strong family history of breast or ova joy cancer or who have been treated for Hodgkin's disease. Signer Name: Cris Jiang MD Signed: 12/21/2021 8:50 AM Workstation Name: [id number]
== END 2021-12-19 09:26 | disposition home or self-care (01) ==
LOC: MRI 09:25
PROVIDERS: ATTEND Physical Medicine & Rehabilitation Pain Medicine
DX: Z12.31 Encounter for screening mammogram for malignant neoplasm of breast (principal); M51.16 Intervertebral disc disorders with radiculopathy, lumbar region; M47.816 Spondylosis without myelopathy or radiculopathy, lumbar region
CPT/HCPCS: 72148; 77067

== ENCOUNTER 2022-01-23 10:02 | Outpatient (CLI) | payer BC ==
--- NOTE | 2022-01-23 12:27 | Mammography Report ---
LEFT DIGITAL DIAGNOSTIC MAMMOGRAM WITH CAD CONVENTIONAL, 01/23/2022 LEFT LIMITED BREAST ULTRASOUND CLINICAL INFORMATION / INDICATION: Patient presents as a callback from screening mammogram for furthe r evaluation of a new nodular density in the left breast. TECHNIQUE: Digital left mammographic imaging was performed. Spot compression views were obtained. [place] ited ultrasound was performed. This examination was interpreted with the benefit of Computer-Aided De tection (CAD) analysis. COMPARISON: Prior mammogram 12/19/2021 FINDINGS: Breast Density: There are scattered areas of fibroglandular density. MAMMOGRAPHIC FINDINGS: There is benign post reduction change in the left breast. Spot compression vie ws reveal a persistent 1.1 cm oval circumscribed mass in the far posterior central left breast. Targe olga ultrasound was performed for further evaluation. ULTRASOUND FINDINGS: Targeted ultrasound evaluation was performed of the area of interest. Correspo nding with the mammographic finding, there is a benign simple cyst in the left breast 12:00 position located 2 cm from the nipple, posterior depth, measuring up to 1.1 cm. Incidental note is made of 2 a dditional smaller, more superficial benign cysts, each measuring up to 5 mm. No suspicious solid lesi on identified. IMPRESSION: 1. A benign cyst accounts for the recent mammographic finding. No suspicious mammographic or sonograp hic abnormality identified. Follow up recommendation: Routine yearly screening mammogram. BI-RADS Category 2: BENIGN. A "normal" or negative report should not discourage follow up or biopsy of a clinically significant f inding. A written summary of these findings will be mailed to the patient. The patient will be entered into a mammography reporting system which will generate a reminder letter for the patient's next appointmen t at the appropriate interval. According to the [employer], yearly mammograms are recommended starting at age 40 and continuing as long as a woman is in good health. Breast MRI is recommended for women with an jignesh roximately 20-25% or greater lifetime risk of breast cancer, including women with a strong family his tory of breast or ovarian cancer and women who have been treated for Hodgkin's disease. Signer Name: Alyssa Hummel MD Signed: 01/23/2022 12:22 PM Workstation Name: [email or web address]
== END 2022-01-23 10:03 | disposition home or self-care (01) ==
LOC: MAMMO 10:02
DX: N60.02 Solitary cyst of left breast (principal); N63.20 Unspecified lump in the left breast, unspecified quadrant